=== PATIENT | male | born 1975 | race Caucasian/White ===

== ENCOUNTER 2020-07-05 05:35 | Emergency (ER) | payer SELFPAY ==
[~2020-07-05] VITALS: Ht 172.7 cm; Wt 90.7 kg
[2020-07-05 05:36] VITALS: Ht 172.7 cm; Wt 90.7 kg
[2020-07-05 06:47] LABS: BASOPHIL % 0.5 % (0-2); PLATELET COUNT 302 x10^3mcL (130-400); RED CELL DISTRIBUTION WIDTH 13.8 % (11.5-14.5)
[2020-07-05 06:57] LABS: CALCIUM 8.8 mg/dL (8.5-10.1); CARBON DIOXIDE 28.5 mmol/L (21-32); CHLORIDE SERUM 105 mmol/L (98-107); CREATININE SERUM 1.2 mg/dL (0.7-1.3); GFR1 > 60 mL/min; GLUCOSE SERUM 111 mg/dL (74-106); POTASSIUM SERUM 3.4 mmol/L (3.5-5.1); SODIUM SERUM 142 mmol/L (136-145)
[2020-07-05 08:30] VITALS: BP 152/102
== END 2020-07-05 08:30 | disposition other institution (70) ==
LOC: ED 05:35
PROVIDERS: Emergency Medicine
DX: R07.89 Other chest pain (principal); J45.909 Unspecified asthma, uncomplicated; F17.210 Nicotine dependence, cigarettes, uncomplicated; I10 Essential (primary) hypertension

== ENCOUNTER 2020-07-05 07:38 | Emergency (ER) | payer OTHER | END 2020-07-05 08:30 | disposition other institution (70) | LOC: ED 07:38 | DX: Z02.89 Encounter for other administrative examinations (principal) ==